=== PATIENT | male | born 1970 ===

== ENCOUNTER 2021-10-16 11:30 | Inpatient (IN) | payer OTHER ==
[~2021-10-16] VITALS: Ht 172.7 cm; Wt 86.2 kg
== END 2021-10-24 16:12 | disposition home or self-care (01) | DRG 330 ==
LOC: O/R 10-21 09:41 → SURG 10-21 09:41 → SURH 10-21 11:30 → SURG 10-21 18:30
PROVIDERS: ADMIT Colon & Rectal Surgery; ATTEND Colon & Rectal Surgery
PROC: 0DBP4ZZ Excision of Rectum, Percutaneous Endoscopic Approach (ICD-10-PCS; 2021-10-21)
PROC: 0DTN4ZZ Resection of Sigmoid Colon, Percutaneous Endoscopic Approach (ICD-10-PCS; principal; 2021-10-21 17:30)
DX: K57.20 Diverticulitis of large intestine with perforation and abscess without bleeding (principal); K92.1 Melena